=== PATIENT | male | born 1955 | race Caucasian/White ===

== ENCOUNTER 2021-01-07 09:27 | Emergency (ER) | payer BC ==
[2021-01-07 09:38] VITALS: RESP 18
[2021-01-07] MEDS ORDERED: MORPHINE SULFATE 4 MG/ML SYRINGE IV STA (10:07)
[2021-01-07] MEDS ORDERED: SODIUM CHLORIDE 0.9% 500 ML 500 ML IV ONE (10:09)
--- NOTE | 2021-01-07 10:25 | ED ---
Skin/Abscess/FB HPI - General Chief complaint: Skin/Abscess/Foreign Body Stated complaint: Abscess Source: patient, family (), RN notes reviewed, old records reviewed Mode of arrival: ambulatory Limitations: no limitations - History of Present Illness Initial comments: 65-year-old well-appearing white male presents to the emergency room alert and oriented 4 with his complaining of right buttock pain and concern for a rectal abscess or fistula. Patient states that on he noticed tenderness to the small area of his right buttock near his rectum and has incr eased in size and pain significantly since Thursday. Patient denies any fevers but has been taking Tylenol and Motrin for the pain. He states that for the past 3 weeks he's had a flare of his colitis and did notice that his stools smelled like pus but has not noticed any drainage in his underwear or any blood. Patient is a nonsmoker and does not drink on a daily basis. MD complaint: abscess/boil -: days(s) (5) Location: buttocks (right) Severity: severe Quality: constant Consistency: constant Improves with: medication (Motrin Tylenol) Worsens with: palpation Context: other (Colitis flare) Associated symptoms: denies other symptoms Treatments Prior to Arrival: other (Tylenol and Motrin) - Related Data Home Medications Medication Instructions Recorded Confirmed Atorvastatin [Lipitor] 40 mg PO HS 01/07/21 01/07/21 Dicyclomine HCl 10 mg PO TID 01/07/21 01/07/21 Entyvio 1 dose IV Q56D 01/07/21 01/07/21 Ibuprofen [Motrin Ib] 800 mg PO Q8H PRN 01/07/21 01/07/21 Multivit-Min/FA/Lycopen/Lutein 1 tab PO DAILY 01/07/21 01/07/21 [Centrum Silver Tablet] predniSONE 30 mg PO DAILY 01/07/21 01/07/21 Previous Rx's Medication Instructions Recorded Cephalexin [Keflex] 500 mg PO Q6HR 7 Days #28 cap 01/07/21 Allergies Allergy/AdvReac Type Severity Reaction Status Date / Time Sulfa (Sulfonamide Allergy Rash/Hives Verified 01/07/21 13:03 Antibiotics) Review of Systems ROS Statement: Those systems with pertinent positive or pertinent negative responses have been documented in the HPI. ROS Other: All systems not noted in ROS Statement are negative. Past Medical History Past Medical History: Hyperlipidemia Additional Past Medical History / Comment(s): ulcerative colitis History of Any Multi-Drug Resistant Organisms: None Reported Past Surgical History: Hernia Repair Additional Past Surgical History / Comment(s): shoulder Past Psychological History: No Psychological Hx Reported Smoking Status: Never smoker Past Alcohol Use History: None Reported Past Drug Use History: None Reported General Exam Limitations: no limitations General appearance: alert, in no apparent distress Head exam: Present: atraumatic, normocephalic, normal inspection Eye exam: Present: normal appearance, PERRL, EOMI. Absent: scleral icterus, conjunctival injection, periorbital swelling Pupils: Present: normal accommodation ENT exam: Present: normal exam, normal oropharynx, mucous membranes moist Neck exam: Present: normal inspection, full ROM. Absent: tenderness, meningismus, lymphadenopathy Respiratory exam: Present: normal lung sounds bilaterally. Absent: respiratory distress, wheezes, rales, rhonchi, stridor, chest wall tenderness, accessory muscle use, decreased breath sounds Cardiovascular Exam: Present: tachycardia GI/Abdominal exam: Present: soft, normal bowel sounds. Absent: distended, tenderness, guarding, rebound, rigid Rectal exam: Present: tenderness, other (Large area of induration to the right buttock extending from the anus, approximately 12 cm x 8 cm, no areas of fluctuance, no drainage) Extremities exam: Present: normal inspection, full ROM, normal capillary refill. Absent: tenderness, pedal edema, joint swelling, calf tenderness Back exam: Present: normal inspection, full ROM. Absent: tenderness, CVA tenderness (R), CVA tenderness (L), muscle spasm, paraspinal tenderness, vertebral tenderness, rash noted Neurological exam: Present: alert, oriented X3, CN II-XII intact Psychiatric exam: Present: normal affect, normal mood Skin exam: Present: warm, dry, intact, normal color. Absent: rash, cyanosis, diaphoretic, erythema, petechiae, pallor, mottled Course Vital Signs 01/07/21 01/07/21 09:36 12:26 Temperature 99.3 F Pulse Rate 104 H 82 Respiratory 18 18 Rate Blood Pressure 109/65 114/63 O2 Sat by Pulse 97 100 Oximetry Procedures - Incision & Drainage Consent Obtained: written consent Site: buttock (right) Anesthetic Used: lidocaine 1% Amount (mLs): 3 I&D Cleaning Method: Alcohol Wipe, Betadine Sterile Field Used?: Yes Scalpel Used: #11 Needle Aspiration Performed?: No Irrigation Performed?: No I&D Drainage Obtained: Pus, Blood Culture Obtained?: Yes Patient Tolerated Procedure: well Medical Decision Making - Medical Decision Making WBC count is 10.2, hemoglobin and hematocrit is 12 and 37 respectively, there is a 6.8 x 5 x 1 x 6 x 1 cm abcess to the right buttock which is I&D and expressed of a large amount of purulent drainage. Patient is currently on steroids for his ulcerative colitis flare. He has feeling much better after the incision and drainage. Dr Gresham at bedside to examine pt and advise him that CT shows that there is a large cortical defect involving the mid pole of the left kidney measuring 4 cm the patient was advised to follow up with his primary care doctor and a general surgeon. Patient will be discharged home on Keflex 4 times a day for the next 7 days for the cellulitis. Directed to soak in warm soapy bath twice a day and return if any fevers or worsening symptoms. Case discussed with Dr. Gresham - Lab Data Result diagrams: 01/07/21 10:31 01/07/21 10:31 Lab Results 01/07/21 01/07/21 Range/Units 10:31 10:31 WBC 10.2 (3.8-10.6) k/uL RBC 4.12 L (4.30-5.90) m/uL Hgb 12.8 L (13.0-17.5) gm/dL Hct 37.7 L (39.0-53.0) % MCV 91.5 (80.0-100.0) fL MCH 31.1 (25.0-35.0) pg MCHC 33.9 (31.0-37.0) g/dL RDW 13.3 (11.5-15.5) % Plt Count 442 (150-450) k/uL MPV 8.5 Neutrophils % 72 % Lymphocytes % 11 % Monocytes % 12 % Eosinophils % 3 % Basophils % 1 % Neutrophils # 7.3 (1.3-7.7) k/uL Lymphocytes # 1.1 (1.0-4.8) k/uL Monocytes # 1.3 H (0-1.0) k/uL Eosinophils # 0.3 (0-0.7) k/uL Basophils # 0.1 (0-0.2) k/uL Manual Slide Review Performed Toxic Vacuolation Present Sodium 134 L (137-145) mmol/L Potassium 4.2 (3.5-5.1) mmol/L Chloride 104 (98-107) mmol/L Carbon Dioxide 28 (22-30) mmol/L Anion Gap 2 mmol/L BUN 17 (9-20) mg/dL Creatinine 0.88 (0.66-1.25) mg/dL Est GFR (CKD-EPI)AfAm >90 (>60 ml/min/1.73 sqM) Est GFR (CKD-EPI)NonAf >90 (>60 ml/min/1.73 sqM) Glucose 107 H (74-99) mg/dL Calcium 8.3 L (8.4-10.2) mg/dL Total Bilirubin 0.7 (0.2-1.3) mg/dL AST 19 (17-59) U/L ALT 24 (4-49) U/L Alkaline Phosphatase 79 (38-126) U/L Total Protein 5.8 L (6.3-8.2) g/dL Albumin 2.9 L (3.5-5.0) g/dL Disposition Clinical Impression: Perianal abscess, Left kidney mass Disposition: HOME SELF-CARE Condition: Fair Instructions (If sedation given, give patient instructions): Abscess Incision and Drainage (ED) Prescriptions: Cephalexin [Keflex] 500 mg PO Q6HR 7 Days #28 cap Is patient prescribed a controlled substance at d/c from ED?: No Referrals: Dave Carvajal DO [Primary Care Provider] - 1-2 days Jax Bonilla MD [STAFF PHYSICIAN] - 1-2 days Time of Disposition: 14:18
[2021-01-07 11:02] LABS: ALT 24 U/L (4-49); AST 19 U/L (17-59); African American GFR (CKD) >90 (>60 ml/min/1.73 sqM); Albumin 2.9 g/dL (3.5-5.0); Alkaline Phosphatase 79 U/L (38-126); Anion Gap 2 mmol/L; Blood Urea Nitrogen 17 mg/dL (9-20); Calcium 8.3 mg/dL (8.4-10.2); Carbon Dioxide 28 mmol/L (22-30); Chloride 104 mmol/L (98-107); Glucose 107 mg/dL (74-99); Non-African American GFR(CKD) >90 (>60 ml/min/1.73 sqM); Potassium 4.2 mmol/L (3.5-5.1); Sodium 134 mmol/L (137-145); Total Bilirubin 0.7 mg/dL (0.2-1.3); Total Protein 5.8 g/dL (6.3-8.2)
[2021-01-07 11:14] LABS: Basophils # (A) 0.1 k/uL (0-0.2); Basophils % (A) 1 %; Eosinophils # (A) 0.3 k/uL (0-0.7); Eosinophils % (A) 3 %; HCT 37.7 % (39.0-53.0); HGB 12.8 gm/dL (13.0-17.5); Lymphocytes # (A) 1.1 k/uL (1.0-4.8); Lymphocytes % (A) 11 %; MCH 31.1 pg (25.0-35.0); MCHC 33.9 g/dL (31.0-37.0); MCV 91.5 fL (80.0-100.0); Mean Platelet Volume 8.5; Monocytes # (A) 1.3 k/uL (0-1.0); Monocytes % (A) 12 %; Neutrophils # (A) 7.3 k/uL (1.3-7.7); Neutrophils % (A) 72 %; Platelet Count 442 k/uL (150-450); RBC 4.12 m/uL (4.30-5.90); RDW 13.3 % (11.5-15.5); WBC 10.2 k/uL (3.8-10.6)
[2021-01-07] MEDS ORDERED: MORPHINE SULFATE 4 MG/ML SYRINGE IVP STA (11:18)
[2021-01-07 11:45] LABS: Toxic Vacuolation Present
[2021-01-07] MEDS ORDERED: HYDROmorphone 1 MG/ML 1 ML SYRINGE IVP PRN (12:32)
[2021-01-07] MEDS ORDERED: LIDOCAINE 1% INJ 10MG/ML (20 ML MDV) SQ ONE (12:36)
--- NOTE | 2021-01-07 12:38 | CT ---
EXAMINATION TYPE: CT abdomen pelvis w con DATE OF EXAM: 01/07/2021 COMPARISON: NONE HISTORY: 65-year-old male with pain, Anorectal abscess. TECHNIQUE: Contiguous axial scanning of the abdomen and pelvis following administration of 100 ml Iso trav 300 IV contrast. Delayed images through the kidneys and coronal/sagittal reconstructions perform ed. CT DLP: 1147 mGycm Automated exposure control for dose reduction was used. FINDINGS: Heart normal size without pericardial effusion. Posterior dependent atelectasis. No pleural effusion. Tiny hiatal hernia. Tiny 5 mm hypodensity right hepatic lobe, axial image 18, too small for accurate CT characterization, likely tiny cyst. Portal venous system is patent. No biliary ductal dilatation. Gallbladder, adrenal glands, right kidney, spleen, and pancreas within normal limits. There is a large cortical defect involving the mid pole of the left kidney but with a heterogeneously enhancing mass measuring 4.0 cm there. This area shows relative washout on the delayed kidney images . No dilated small bowel, free fluid, or free air. Normal appendix. Liquid stool within the right side of the colon. Moderate circumference of wall thic kening involving the transverse and descending colon. A haustral sigmoid colon with some mucosal fat deposition. Engorgement of the basal recta. Mild strandy edema tracking down the left paracolic gutte r. Bladder urine distended. Prostate gland measures 4.0 cm wide. Mesh repair along the bilateral inguina l regions. Left-sided pelvic platelets. No pelvic lymphadenopathy. However, there is a large perianal abscess extending posteriorly measuring up to 6.8 x 5.1 cm in axia l series that is 6.1 cm craniocaudal. Associated cellulitis, right greater than left and foci of air. Bones: Moderate degenerative disc disease L4-L5. Facet arthropathy lower lumbar spine. IMPRESSION: 1. A 6.8 X 5.1 X 6.1 CM PERIANAL ABSCESS EXTENDING POSTERIORLY. SURROUNDING CELLULITIS, RIGHT GREATER THAN LEFT. 2. A MODERATE ACUTE ON CHRONIC COLITIS INVOLVING THE TRANSVERSE, DESCENDING, AND SIGMOID COLON. CONSI RADHA INFLAMMATORY BOWEL DISEASE. NO FREE AIR.
[2021-01-07] MEDS ORDERED: ACETAMINOPHEN TAB 500 MG TAB PO STA (15:10)
[2021-01-07] MEDS ORDERED: IBUPROFEN 600 MG TAB PO STA (15:10)
[2021-01-07 15:41] VITALS: BP 116/78; PULSE 81; TEMP 99
== END 2021-01-07 15:40 | disposition home or self-care (01) ==
LOC: EC 09:27
DX: K61.0 Anal abscess (principal); N28.89 Other specified disorders of kidney and ureter; E78.5 Hyperlipidemia, unspecified; Z79.1 Long term (current) use of non-steroidal anti-inflammatories (NSAID); Z79.899 Other long term (current) drug therapy; Z88.2 Allergy status to sulfonamides
CPT/HCPCS: 96361 ×2; 96376 ×2; 96374 ×2; 96375 ×2; 99284 ×2; 46050 ×2; 36415; 80053; 85025; 87070; 87205; 74177; J2270; J2001; J1170; Q9967; 87077; 87186

== ENCOUNTER → 2021-02-11 | Outpatient (CLI) | payer BC ==
--- NOTE | 2021-02-12 07:17 | MR ---
EXAMINATION TYPE: MR kidney wo/w con DATE OF EXAM: 02/11/2021 COMPARISON: CT scan 01/07/2021 HISTORY: Left renal mass. CONTRAST: Standard multiplanar, multisequence MRI departmental protocol utilizing 8 mL intravenous Gadavist lynne olinium contrast. Liver spleen stomach appear intact. Pancreas appears normal. The pancreatic duct appears normal. The bile ducts are not dilated. Gallbladder appears normal. There is no adrenal mass. Kidneys have normal size. There is a 3.8 cm rounded mixed signal mass involving the interpolar latera l left kidney. Mass does not appear to contain any significant amount of fat. Mass not changed in siz e compared to recent CT scan. The contrast images show progressive increasing enhancement of the mass. No significant fluid compone nt. The mass has slight increased signal on T2 images above the kidney. There is normal enhancement o f the portal venous system. There is normal enhancement of the inferior vena cava and the renal veins . I see no retroperitoneal adenopathy. IMPRESSION: Sharply marginated mass on the left kidney with progressive enhancement on delayed images. This could be angiomyolipoma without any fat component. The rounded shape and enhancement pattern is more sugge stive of a benign etiology. This mass is certainly not a typical malignant tumor.
== END | disposition home or self-care (01) ==
LOC: RADMRIMAIN 16:42
PROVIDERS: ATTEND Urology
DX: N28.89 Other specified disorders of kidney and ureter (principal)
CPT/HCPCS: 74183; A9585

== ENCOUNTER → 2021-12-20 | Outpatient (CLI) | payer BC ==
--- NOTE | 2021-12-20 19:39 | CT ---
EXAMINATION TYPE: CT abdomen wo/w con DATE OF EXAM: 12/20/2021 COMPARISON: 01/07/2021 HISTORY: h/o renal ca CT DLP: 1169 mGycm Automated exposure control for dose reduction was used. TECHNIQUE: Helical acquisition of images was performed from the lung bases through the top of iliac crest to include entire abdomen. CONTRAST: Performed with Oral Contrast and with IV Contrast, patient injected with 100 mL of Isovue 300. FINDINGS: LUNG BASES: No significant abnormality is appreciated. LIVER/GB: 5 mm hypodensity right hepatic lobe on prior exam stable from prior exam. 2 small to charac terize.. PANCREAS: Pancreas is homogeneous in attenuation. There remains mild prominence the pancreatic head a nd uncinate process. SPLEEN: Diminutive in size. ADRENALS: No significant abnormality is seen. KIDNEYS: No hydronephrosis. Right kidney demonstrated normal enhancement pattern. Left kidney demonst rates postsurgical change with deformity of the lateral margin of the kidney. There is a residual 1.5 cm hypodensity axial image 27 postcontrast. Area of previous surgery. Hounsfield unit measurement is 10. May represent postsurgical change or cystic remnant. Given the patient's history MRI of the [facility] is recommended. BOWEL: There remains a wall thickening involving the transverse colon and left colon. Correlate clin ically for a colitis. No evidence of obstruction. Mucosal lesion not excluded LYMPH NODES: No significant abnormality is seen. OSSEOUS STRUCTURES: Hypertrophic degenerative changes spine. Chronic rib deformities suggest remote trauma.. Posterior spurring at L4-L5 appears to result in significant canal stenosis. OTHER: There are numerous small punctate nodules seen in the mesentery along the left abdomen. These were also noted on the prior exam and may represent areas of tiny shotty adenopathy. Given there is b een no interval increase in size tumor implant be less likely consideration. IMPRESSION: 1. Postsurgical change involving the left kidney with apparent resection of a heterogeneously enhanci ng malignant appearing mass. There now is deformity of the left kidney with a small residual 1.5 cm l esion near the surgical bed and resection Which measures approximately 9-10 Hounsfield units and the more fluid attenuation. Given the attenuat ion level may be postsurgical or related to small cyst. However, given the patient's history recommen d follow-up MRI. 2. There are multiple punctate nodules within the mesentery greater within the left abdomen and the p eripancreatic region. These are retrospectively stable from the prior exam may represent areas of chalo tty lymphadenopathy is favored over small tumor implant given their stability. Recommend this be sally tored on a short-term basis. 3. Diffuse colonic wall thickening correlate for colitis.
--- NOTE | 2021-12-20 19:47 | XR ---
EXAMINATION TYPE: XR chest 2V DATE OF EXAM: 12/20/2021 COMPARISON: NONE TECHNIQUE: PA and lateral views submitted. HISTORY: Follow-up renal carcinoma FINDINGS: The lungs are clear and there is no pneumothorax, pleural effusion, or focal pneumonia. Heart size normal. Chronic appearing rib deformities noted on the left correlate for prior fracture. Hyperinflat ion of the lungs. Degenerative change of the spine. IMPRESSION: 1. No acute process.
== END | disposition home or self-care (01) ==
LOC: RADCTMAIN 17:00
PROVIDERS: ATTEND Urology
DX: C64.9 Malignant neoplasm of unspecified kidney, except renal pelvis (principal); K63.89 Other specified diseases of intestine
CPT/HCPCS: 82565; 84520; 71046; 74170; Q9967

== ENCOUNTER → 2022-08-15 | Outpatient (CLI) | payer MEDICARE ==
--- NOTE | 2022-08-17 19:34 | CT ---
EXAMINATION TYPE: CT chest abdomen w con, CT abdomen wo con DATE OF EXAM: 08/15/2022 COMPARISON: Prior chest x-ray December 20, 2021. CT abdomen December 20, 2021 and older studies. HISTORY: obs for mets. f/u hx of left kidney ca with tumor removed and 10% of kidney. CT DLP: 1103.90. (accession [id number]), 1103.90 (accession [id number]) mGycm. Automated Exposure Control for Dose Reduction was Utilized. CONTRAST: CT abdomen without IV contrast. CT scan of the thorax and abdomen are performed with oral and with IV Contrast, patient injected with 80 mL of Isovue 370. FINDINGS: LUNGS: There is no concerning greater than 5 mm parenchymal mass or nodule identified. There is depen dent atelectasis bilateral lateral lower lobes. No suspicious focal consolidation. There is no pleura l effusion or pneumothorax seen. The tracheobronchial tree is patent. MEDIASTINUM: There are no greater than 1 cm hilar or mediastinal lymph nodes. No cardiomegaly or pe ricardial effusion is seen. OTHER: Bilateral subareolar gynecomastia is present. There is heterogeneous left thyroid enlargement due to 3.8 cm nodule axial image 6 that warrants follow-up. LIVER/GB: No significant abnormality is appreciated. PANCREAS: No significant abnormality is seen. SPLEEN: No significant abnormality is seen. ADRENALS: No significant abnormality is seen. KIDNEYS: Treatment changes in the left kidney is seen within asymmetric diminished size and linear de nsity along the periphery of the left kidney midpole level redemonstrated. Subcentimeter low density round area axial series 2 image 67 is diminished in size from prior study suggesting resolving postsu rgical seroma. Postcontrast images show symmetric cortical medullary uptake and excretion without hyd ronephrosis seen bilaterally. No new solid or cystic renal masses are seen. BOWEL: Oral contrast does not reach the level of the terminal ileum making evaluation of distal bowel suboptimal. There is no suspicious small or large bowel dilatation seen. Similar to the prior CT markell dies, there is moderate to severe concentric wall thickening with loss of haustration beginning in th e distal one half of the transverse colon extending through splenic flexure through the visualized po rtion of the left colon. LYMPH NODES: Stable prominent but subcentimeter retroperitoneal lymph nodes. No new greater than 1 cm abdominal lymph nodes are appreciated. OSSEOUS STRUCTURES: Slight scoliotic curvature. OTHER: No significant additional abnormality is seen. IMPRESSION: 1. No obvious new mass or adenopathy to suggest neoplastic recurrence. 2. Persistent distal colitis, correlate for inflammatory etiology such as ulcerative colitis. No sign ificant change in visualized portion of the colon from last two prior CT studies.
== END | disposition home or self-care (01) ==
LOC: RADCTMAIN 14:40
PROVIDERS: ATTEND Urology
DX: C64.2 Malignant neoplasm of left kidney, except renal pelvis (principal); K52.9 Noninfective gastroenteritis and colitis, unspecified
CPT/HCPCS: 82565; 84520; 71260; 74150; 74160; 36415; Q9967

== ENCOUNTER → 2023-06-10 | Outpatient (CLI) | payer MEDICARE ==
[2023-06-10 11:40] LABS: African American GFR (CKD) >90 (>60 ml/min/1.73 sqM); Blood Urea Nitrogen 16 mg/dL (9-20); Non-African American GFR(CKD) 87 (>60 ml/min/1.73 sqM)
--- NOTE | 2023-06-10 12:18 | XR ---
EXAMINATION TYPE: XR chest 2V DATE OF EXAM: 06/10/2023 COMPARISON: 12/20/2021 HISTORY: 67-year-old male C6 4.2, kidney cancer TECHNIQUE: Frontal and lateral views FINDINGS: The cardiomediastinal silhouette, aorta, and pulmonary vasculature are within normal limits. Mild hyp erinflation. Otherwise, lungs and pleural spaces are clear. IMPRESSION: Mild hyperinflation may relate to a depth of inspiration or underlying emphysema. Clinically correlat e. Otherwise, no acute cardiopulmonary process.
--- NOTE | 2023-06-10 13:39 | CT ---
EXAMINATION TYPE: CT abdomen wo/w con CT DLP: 979.6 mGycm, Automated exposure control for dose reduction was used. DATE OF EXAM: 06/10/2023 12:28 PM COMPARISON: CT abdomen pelvis most recent from 08/15/2022. CLINICAL INDICATION:Male, 67 years old with history of C64.2 kidney cancer; renal mass TECHNIQUE: Axial CT of the ;CT abdomen wo/w con;Sagittal and coronal reformats were created on a [employer] workstation. Contrast used:100 mL of Isovue 300 without and with IV Contrast, (none if empty) Oral contrast used: with Oral Contrast (none if empty) FINDINGS: LOWER CHEST: Unremarkable ABDOMEN LIVER: Unremarkable GALLBLADDER AND BILE DUCTS: Unremarkable. PANCREAS: Unremarkable. SPLEEN: Unremarkable. ADRENAL GLANDS: Unremarkable. KIDNEYS AND URETERS: Postsurgical changes of left kidney. No evidence for abnormal soft tissue mass o r recurrence. No lymphadenopathy. The right kidney is without evidence of mass. No evidence of obstru ctive uropathy or calculus. STOMACH AND BOWEL: No evidence of bowel obstruction. Circumferential wall thickening of the colon wit h submucosal fat deposition. PERITONEUM/RETROPERITONEUM: No evidence of pneumoperitoneum or free fluid. VASCULATURE: No evidence of aortic aneurysm. MUSCULOSKELETAL: No acute osseous abnormalities LYMPH NODES: No gross evidence for lymphadenopathy. SOFT TISSUE/ABDOMINAL WALL: Fat-containing umbilical hernia. IMPRESSION: 1. Post partial nephrectomy changes of the left kidney. No evidence for recurrence or lymphadenopath y. 2. Similar chronic submucosal fat deposition within the colon.
== END | disposition home or self-care (01) ==
LOC: RADCTMAIN 10:45
PROVIDERS: ATTEND Urology
DX: C64.2 Malignant neoplasm of left kidney, except renal pelvis (principal); K63.89 Other specified diseases of intestine; Z90.5 Acquired absence of kidney
CPT/HCPCS: 82565; 84520; 71046; 74170; 36415; Q9967

== ENCOUNTER → 2024-06-22 | Outpatient (CLI) | payer MEDICARE ==
[2024-06-22 11:07] LABS: African American GFR (CKD) >90 (>60 ml/min/1.73 sqM); Blood Urea Nitrogen 19 mg/dL (9-20); Non-African American GFR(CKD) 87 (>60 ml/min/1.73 sqM)
--- NOTE | 2024-06-22 11:42 | XR ---
EXAMINATION TYPE: XR chest 2V DATE OF EXAM: 06/22/2024 10:11 AM COMPARISON: 06/10/2023 CLINICAL INDICATION: Male, 68 years old with history of C64.2 MALIGNANT NEOPLASM OF LEFT KIDNEY, , TECHNIQUE: Frontal and lateral views FINDINGS: Degenerative bilateral AC joints. Possible sequela of old injury at the left AC joint/distal left cla vicle. Heart normal size. Aorta and pulmonary vasculature within normal limits. No consolidation or p leural effusion. IMPRESSION: No acute cardiopulmonary process. [facility], , 06/22/2024 11:40 AM
[2024-06-22 15:11] LABS: HCT 38.5 % (39.6-50.0); HGB 12.5 g/dL (13.0-17.0); MCH 31.1 pg (27.0-32.0); MCHC 32.5 g/dL (32.0-37.0); MCV 95.8 FL (80.0-97.0); Mean Platelet Volume 10.5 FL (9.5-12.2); NRBC Per 100 WBC 0 X 10*3/uL (0.00-0.01); Platelet Count 383 X 10*3/uL (140-440); RBC 4.02 X 10*6/uL (4.40-5.60); RDW 14.7 % (11.5-14.5); WBC 8.41 X 10*3/uL (4.50-10.00)
[2024-06-22 15:29] LABS: ALT 20 U/L (10-49); AST 20 U/L (14-35); Albumin 3.9 g/dL (3.8-4.9); Albumin/Globulin Ratio 1.26 Ratio (1.60-3.17); Alkaline Phosphatase 69 U/L (41-126); BUN/Creat Ratio 19.11 Ratio (12.00-20.00); Blood Urea Nitrogen 17.2 mg/dL (9.0-27.0); Calcium 9.3 mg/dL (8.7-10.3); Carbon Dioxide 24.9 mmol/L (21.6-31.8); Chloride 105 mmol/L (96-109); Globulin 3.1 g/dL (1.6-3.3); Glucose 100 mg/dL (70-110); Potassium 4.6 mmol/L (3.5-5.5); Sodium 138 mmol/L (135-145); Total Bilirubin 0.3 mg/dL (0.3-1.2)
[2024-06-22 16:09] LABS: Erythrocyte Sedimentation Rate 12 mm/Hr (0-20)
--- NOTE | 2024-06-24 09:53 | CT ---
EXAMINATION TYPE: CT abdomen wo/w con DATE OF EXAM: 06/22/2024 11:44 AM COMPARISON: 06/10/2023 , 08/15/2022 CLINICAL INDICATION: Male, 68 years old with history of C64.2 MALIGNANT NEOPLASM OF LEFT KIDNEY, rosalba l mass TECHNIQUE: Axial images were obtained from above the diaphragm to the pubic rami in the axial plane a t 5 mm thick sections. Reconstructed images are reviewed on the computer in the coronal plane. CONTRAST: 100 mL of Isovue 300. Study performed with Oral Contrast DLP: 895.4 mGycm, Automated exposure control for dose reduction was used. FINDINGS: Limited CT sections are obtained the lung bases. The lung bases are clear. CT ABDOMEN: Liver: Normal Spleen: Small and atrophic. This is stable from comparison. Pancreas: Normal Adrenal glands: The adrenal glands are normal. Gallbladder: Normal Kidneys: There is a 2.2 cm stable appearing hypodense postsurgical change along the posterior lateral left mid kidney. This appears unchanged from prior exams.. There may be some mild right peripelvic c ysts, stable from comparison. Visualized right ureter has slight prominence. Delayed images were obta ined through the kidneys, which remain otherwise unremarkable. Aorta: Vascular calcification is within the aorta. Inferior vena cava: Normal. The distal transverse colon and descending colon within the field of view into the pelvis has diffuse ly thickened wall. Correlate for colitis. The wall thickening appears slightly increased from previou s study. There are loops of bowel which are incompletely distended or lack oral contrast limiting the ir evaluation. IMPRESSION: 1. Stable appearance left posterior lateral renal surgery. 2. Diffuse wall thickening through the distal transverse descending colon. Correlate for colitis. Thi s is chronic from multiple prior exams. 3. Atrophic spleen. [facility], Workstation: [facility], 06/24/2024 9:51 AM
== END | disposition home or self-care (01) ==
LOC: RADCTMAIN 09:41
PROVIDERS: ATTEND Urology
DX: C64.2 Malignant neoplasm of left kidney, except renal pelvis (principal); K51.90 Ulcerative colitis, unspecified, without complications
CPT/HCPCS: 80053; 85652; 82565; 84520; 85027; 83993; 71046; 74170; 36415; Q9967

== ENCOUNTER → 2024-08-05 | Outpatient (CLI) | payer MEDICARE ==
--- NOTE | 2024-08-05 12:57 | US ---
EXAMINATION TYPE: US venous doppler duplex LE RT DATE OF EXAM: 08/05/2024 12:45 PM COMPARISON: NONE CLINICAL INDICATION: Male, 68 years old with history of R60.0 EDEMA; Right lower leg swelling TECHNIQUE: The lower extremity deep venous system is examined utilizing real time linear array sonog reggie with graded compression, color doppler sonography, and spectral doppler. SIDE PERFORMED: Right FINDINGS: VESSELS IMAGED: Common Femoral Vein Deep Femoral Vein Greater Saphenous Vein * Femoral Vein Popliteal Vein Small Saphenous Vein * Proximal Calf Veins (* superficial vessels) Right Leg: Positive for DVT popliteal vein IMPRESSION: 1. Deep venous thrombosis present within the right lower extremity popliteal vein [facility], Workstation: [facility], 08/05/2024 12:54 PM
== END | disposition home or self-care (01) ==
LOC: RADUSWWP 12:22
PROVIDERS: ATTEND Family Medicine
DX: I82.491 Acute embolism and thrombosis of other specified deep vein of right lower extremity (principal); R60.0 Localized edema; M79.89 Other specified soft tissue disorders

== ENCOUNTER → 2024-10-21 | Outpatient (CLI) | payer MEDICARE ==
[2024-10-21 16:23] LABS: Basophils # (A) 0.02 X 10*3/uL (0.00-0.10); Basophils % (A) 0.3 %; Eosinophils # (A) 0.02 X 10*3/uL (0.04-0.35); Eosinophils % (A) 0.3 %; HCT 36.1 % (39.6-50.0); HGB 11.4 g/dL (13.0-17.0); Lymphocytes # (A) 1.13 X 10*3/uL (0.90-5.00); Lymphocytes % (A) 15.2 %; MCH 29.5 pg (27.0-32.0); MCHC 31.6 g/dL (32.0-37.0); MCV 93.5 FL (80.0-97.0); Mean Platelet Volume 10.6 FL (9.5-12.2); Monocytes # (A) 0.27 X 10*3/uL (0.20-1.00); Monocytes % (A) 3.6 %; NRBC Per 100 WBC 0 X 10*3/uL (0.00-0.01); Neutrophils # (A) 5.95 X 10*3/uL (1.80-7.70); Neutrophils % (A) 79.9 %; Platelet Count 391 X 10*3/uL (140-440); RBC 3.86 X 10*6/uL (4.40-5.60); RDW 15.5 % (11.5-14.5); WBC 7.44 X 10*3/uL (4.50-10.00)
[2024-10-21 16:35] LABS: Erythrocyte Sedimentation Rate 12 mm/Hr (0-20)
[2024-10-21 16:36] LABS: ALT 27 U/L (10-49); AST 23 U/L (14-35); Albumin 3.4 g/dL (3.8-4.9); Albumin/Globulin Ratio 1.26 Ratio (1.60-3.17); Alkaline Phosphatase 75 U/L (41-126); Blood Urea Nitrogen 17.6 mg/dL (9.0-27.0); C Reactive Protein <0.30 mg/dL (0.00-0.80); Carbon Dioxide 24.2 mmol/L (21.6-31.8); Chloride 106 mmol/L (96-109); Globulin 2.7 g/dL (1.6-3.3); Glucose 119 mg/dL (70-110); Potassium 4.3 mmol/L (3.5-5.5); Sodium 138 mmol/L (135-145); Total Bilirubin 0.3 mg/dL (0.3-1.2); Total Protein 6.1 g/dL (6.2-8.2)
== END | disposition home or self-care (01) ==
LOC: LABWHC1 11:13
PROVIDERS: ATTEND Nurse Practitioner Family
DX: K51.90 Ulcerative colitis, unspecified, without complications (principal)
CPT/HCPCS: 36415; 80053; 83993; 85025; 85652; 86140; 87045; 87046; 87324

== ENCOUNTER → 2024-10-28 | Outpatient (CLI) | payer MEDICARE ==
--- NOTE | 2024-10-28 14:18 | US ---
EXAMINATION TYPE: US thyroid st tissue head/neck DATE OF EXAM: 10/28/2024 COMPARISON: 09/15/2022 CLINICAL INDICATION: Male, 69 years old with history of E04.1 NONTOXIC SINGLE THYROID NODULE; Patient denies any signs, symptoms, or relevant history TECHNIQUE: Grayscale and color Doppler imaging of the thyroid gland. FINDINGS: GLAND SIZE: Right Lobe: 4.9 x 1.8 x 1.5 cm Overall Parenchyma: homogeneous Left Lobe: 6.2 x 3.6 x 2.8 cm Overall Parenchyma: homogeneous Isthmus Thickness: 0.2 cm NODULES RIGHT: # of nodules measured on right: 0 LEFT: # of nodules measured on left: 1 1. 5.4 X 3.2 x 2.9 cm, lower mid, mixed cystic and solid, isoechoic nodule, which is taller than wi de, with smooth margins, without echogenic foci. Prior size: 4.6 x 3.4 x 3.6 cm TIRADS Score: 2 TIRADS Category 2: Not Suspicious Composition: Mixed cystic and solid (1 point). Echogenicity: Hyperechoic or isoechoic (1 point). Shape: Wider than tall (0 points). Margin: Smooth (0 points). Echogenic foci: None or large comet-tail artifacts (0 points) Recommendation: No FNA ISTHMUS: # of nodules measured in the isthmus: 0 Bilateral neck scanned, no evidence of lymphadenopathy. IMPRESSION: Left thyroid nodule which is TR 2 Highest TI-RADS level nodule reported: 2017 ACR TI-RADS LEVEL: TI-RADS 2 - Not Suspicious: No FNA TI-RADS assessment score and recommendation for follow-up based on appropriate scoring and treatment protocols. TR3: If nodule size is ? 2.5 cm, FNA is recommended. If nodule size is ? 1.5 cm, follow-up imaging at 1, 3, and 5 years is recommended. TR4: If nodule size is ? 1.5 cm, FNA is recommended. If nodule size is ? 1.0 cm, follow-up imaging at 1, 2, 3, and 5 years is recommended. TR5: If nodule size is ? 1.0 cm, FNA is recommended. If nodule size is ? 0.5 cm, annual follow-up for up to 5 years is recommended. [email or web address] [facility], , 10/28/2024 2:16 PM
[2024-10-28 18:51] LABS: T4, Free (Free Thyroxine) 1.23 ng/dL (0.80-1.80)
== END | disposition home or self-care (01) ==
LOC: RADUSWWP 13:28
PROVIDERS: ATTEND Internal Medicine
DX: E04.1 Nontoxic single thyroid nodule (principal)
CPT/HCPCS: 76536; 84439; 84443

== ENCOUNTER → 2024-12-07 | Outpatient (CLI) | payer MEDICARE ==
[2024-12-07 16:48] LABS: Hepatitis B Surface Antigen Nonreactive (Nonreactive)
== END | disposition home or self-care (01) ==
LOC: LABWHC1 08:18
PROVIDERS: ATTEND Internal Medicine Gastroenterology
DX: K51.90 Ulcerative colitis, unspecified, without complications (principal)
CPT/HCPCS: 36415; 86480; 86704; 87340

== ENCOUNTER → 2025-02-14 | Outpatient (CLI) | payer MEDICARE ==
[2025-02-14 15:06] LABS: Basophils # (A) 0.04 X 10*3/uL (0.00-0.10); Basophils % (A) 0.5 %; Eosinophils # (A) 0.09 X 10*3/uL (0.04-0.35); Eosinophils % (A) 1.0 %; HCT 38.4 % (39.6-50.0); HGB 11.9 g/dL (13.0-17.0); Immature Grans, Automated 0.50 %; Lymphocytes # (A) 2.19 X 10*3/uL (0.90-5.00); Lymphocytes % (A) 24.7 %; MCH 29.2 pg (27.0-32.0); MCHC 31.0 g/dL (32.0-37.0); MCV 94.3 FL (80.0-97.0); Monocytes # (A) 0.87 X 10*3/uL (0.20-1.00); Monocytes % (A) 9.8 %; NRBC Per 100 WBC 0 X 10*3/uL (0.00-0.01); Neutrophils # (A) 5.64 X 10*3/uL (1.80-7.70); Neutrophils % (A) 63.5 %; Platelet Count 165 X 10*3/uL (140-440); RBC 4.07 X 10*6/uL (4.40-5.60); RDW 15.0 % (11.5-14.5); WBC 8.87 X 10*3/uL (4.50-10.00)
[2025-02-14 15:22] LABS: ALT 22 U/L (10-49); AST 21 U/L (14-35); Albumin 3.7 g/dL (3.8-4.9); Albumin/Globulin Ratio 1.48 Ratio (1.60-3.17); Alkaline Phosphatase 50 U/L (41-126); Anion Gap 11.20 mmol/L (4.00-12.00); BUN/Creat Ratio 18.20 Ratio (12.00-20.00); Blood Urea Nitrogen 18.2 mg/dL (9.0-27.0); Calcium 9.1 mg/dL (8.7-10.3); Carbon Dioxide 24.8 mmol/L (21.6-31.8); Chloride 112 mmol/L (96-109); Globulin 2.5 g/dL (1.6-3.3); Glucose 106 mg/dL (70-110); Potassium 4.5 mmol/L (3.5-5.5); Sodium 148 mmol/L (135-145); Total Protein 6.2 g/dL (6.2-8.2)
== END | disposition home or self-care (01) ==
LOC: LABWHC1 10:58
PROVIDERS: ATTEND Internal Medicine Gastroenterology
DX: K51.90 Ulcerative colitis, unspecified, without complications (principal)
CPT/HCPCS: 36415; 80053; 85025; 85652; 86140